=== PATIENT | male | born 1970 ===

== ENCOUNTER 2017-09-29 12:43 | Emergency (ER) | payer MEDICAID ==
[2017-09-29 14:40] LABS: BASO % 0.7 % (0.0-2.0); EOS # 0.1 K/uL (0.0-0.7); HEMOGLOBIN 15.3 g/dL (12.0-18.0); LYMPH # 0.9 K/uL (1.0-4.3); LYMPH % 20.3 % (20.0-40.0); MEAN CELL VOLUME 90.2 fL (80.0-94.0); MEAN CORPUSCULAR HEMOGLOBIN 30.9 pg (27.0-31.0); MEAN CORPUSCULAR HGB CONC 34.3 g/dL (33.0-37.0); MEAN PLATELET VOLUME 9.5 fL (7.2-11.7); MONO # 0.4 K/uL (0.0-0.8); MONO % 9.3 % (0.0-10.0); NEUT % 66.7 % (50.0-75.0); NRBC % 0.1 % (0.0-2.0); RBC 4.93 Mil/uL (4.40-5.90); RED CELL DISTRIBUTION WIDTH 13.4 % (11.5-14.5); WHITE BLOOD COUNT 4.5 K/uL (4.8-10.8)
[2017-09-29 14:42] VITALS: RESP 18
--- NOTE | 2017-09-29 15:01 | RAD ---
Date of service: 09/29/2017 HISTORY: SOB COMPARISON: No prior. TECHNIQUE: Chest PA and lateral FINDINGS: LUNGS: No active pulmonary disease. PLEURA: No significant pleural effusion identified. No pneumothorax apparent. CARDIOVASCULAR: Normal. OSSEOUS STRUCTURES: No significant abnormalities. VISUALIZED UPPER ABDOMEN: Normal. OTHER FINDINGS: None. IMPRESSION: No active disease.
[2017-09-29 15:25] VITALS: TEMP 98.8
[2017-09-29 15:36] LABS: ALB/GLOB RATIO 1.2 (1.0-2.1); ALBUMIN 4.6 g/dL (3.5-5.0); ALT/SGPT 50 U/L (21-72); AST/SGOT 38 U/L (17-59); BLOOD UREA NITROGEN 7 mg/dL (9-20); CALCIUM 9.9 mg/dl (8.6-10.4); GFR AFRICAN-AMERICAN > 60; GFR NON-AFRICAN AMERICAN > 60
[2017-09-29 15:49] LABS: B-TYPE NATRIURETIC PEPTIDE 34.9 pg/mL (0-450)
--- NOTE | 2017-09-29 16:10 | C.PDOC ---
History Of Present Illness Pt states that he was having LUE discomfort yesterday that is much better today. He states that he felt like he needed to get fresh air yesterday. No SOB today. Denies chest pain. Time Seen by Provider: 09/29/17 14:07 Chief Complaint (Nursing): Medical Clearance History Per: Patient Onset/Duration Of Symptoms: Days (1) Current Symptoms Are (Timing): Better Severity: Moderate Additional History Per: Prior Records Past Medical History Reviewed: Historical Data, Nursing Documentation, Vital Signs Vital Signs: Last Vital Signs Temp 98.8 F 09/29/17 15:23 Pulse 74 09/29/17 15:23 Resp 18 09/29/17 15:23 BP 163/88 H 09/29/17 15:23 Pulse Ox 98 09/29/17 15:23 - Medical History PMH: HTN (Not on any meds) Surgical History: No Surg Hx Family History: States: Unknown Family Hx - Social History Hx Tobacco Use: Yes Hx Alcohol Use: Yes Hx Substance Use: No - Immunization History Hx Tetanus Toxoid Vaccination: Yes Hx Influenza Vaccination: No Hx Pneumococcal Vaccination: No Review Of Systems Except As Marked, All Systems Reviewed And Found Negative. Constitutional: Negative for: Fever, Weakness Cardiovascular: Negative for: Chest Pain Respiratory: Positive for: Shortness of Breath (?). Negative for: Hemoptysis Gastrointestinal: Positive for: Other (belching). Negative for: Vomiting, Abdominal Pain Musculoskeletal: Positive for: Arm Pain (left). Negative for: Back Pain, Leg Pain Skin: Negative for: Rash Neurological: Negative for: Weakness, Seizures, Altered Mental Status Physical Exam - Physical Exam Appears: Non-toxic, No Acute Distress Skin: Normal Color, Warm, Dry, No Rash Head: Atraumatic, Normacephalic Eye(s): bilateral: PERRL, EOMI Neck: Normal ROM, Supple Cardiovascular: Rhythm Regular Respiratory: Normal Breath Sounds, No Accessory Muscle Use Gastrointestinal/Abdominal: Soft, No Tenderness Back: No CVA Tenderness Extremity: Normal ROM, No Deformity, No Swelling Extremity: Bilateral: Normal Color And Temperature Pulses: Left Radial: Normal Neurological/Psych: Oriented x3, Normal Speech, Normal Cognition, Normal Motor, Normal Sensation ED Course And Treatment - Laboratory Results Result Diagrams: 09/29/17 14:33 09/29/17 14:33 Lab Interpretation: No Acute Changes ECG: Interpreted By Me, Viewed By Me ECG Rhythm: Sinus Rhythm, Nonspecific Changes ECG Interpretation: No Acute Changes Rate From EC O2 Sat by Pulse Oximetry: 98 Pulse Ox Interpretation: Normal - Radiology CXR: Viewed By Me, Read By Radiologist CXR Interpretation: Yes: No Acute Disease Reassessment Condition: Improved Disposition Counseled Patient/Family Regarding: Studies Performed, Diagnosis, Need For Followup, Rx Given, Smoking Cessation - Disposition Referrals: Eyad Macias MD [Medical Doctor] - Disposition: HOME/ ROUTINE Disposition Time: 16:12 Condition: STABLE Additional Instructions: Follow up with your primary doctor within 1-2 weeks for further evaluation and treatment. Return to the ER if you develop chest pain, worsening of symptoms or if you have any other concerns. Prescriptions: Aspirin [Ecotrin] 81 mg PO DAILY #30 tabec hydroCHLOROthiazide [Microzide] 12.5 mg PO DAILY #30 cap Instructions: Low Salt Diet Forms: Gen Discharge Inst Slovak Print Language: ESTONIAN - Clinical Impression Clinical Impression: Left upper arm pain
[2017-09-29 16:29] VITALS: BP 158/87; PULSE 61; O2SAT 99
--- NOTE | 2017-09-30 14:15 | CARD ---
APPROVED REPORT Date of service: 09/29/2017 EKG Measurement Heart [id number] <Conclusion> Normal sinus rhythm Minimal voltage criteria for LVH, may be normal variant Borderline ECG
== END 2017-09-29 16:28 | disposition home or self-care (01) ==
LOC: C.ER 12:43 → MERGE 12:43 → C.ER 16:28
DX: M79.622 Pain in left upper arm (principal); I10 Essential (primary) hypertension; F17.210 Nicotine dependence, cigarettes, uncomplicated